=== PATIENT | female | born 1990 ===

== ENCOUNTER 2023-01-21 17:31 | Emergency (ER) | payer OTHER ==
[~2023-01-21] VITALS: Ht 162.6 cm; Wt 65.8 kg
[~2023-01-21 17:31] MED LIST: MUPIROCIN22 GM TOP
[2023-01-21 17:40] VITALS: O2SAT 100
[2023-01-21] MEDS ORDERED: IBUPROFEN 600 MG TAB PO STA (18:59)
[2023-01-21] MEDS ORDERED: LMX 45 G1 TOP (19:25)
[2023-01-21] MEDS ORDERED: IBUPROFEN600 MG PO (19:25)
[2023-01-21] MEDS ORDERED: DOXYCYCLINE HY100 MG PO (19:25)
== END 2023-01-21 19:49 | disposition home or self-care (01) ==
LOC: ER 17:35
DX: L03.115 Cellulitis of right lower limb (principal); M25.552 Pain in left hip; M25.551 Pain in right hip; V49.88XA Car occupant (driver) (passenger) injured in other specified transport accidents, initial encounter; Y92.488 Other paved roadways as the place of occurrence of the external cause
CPT/HCPCS: 99283